=== PATIENT | male | born 1990 | race Caucasian/White ===

== ENCOUNTER 2016-10-03 08:45 | Emergency (ER) | payer SELFPAY ==
[~2016-10-03] VITALS: Ht 175.3 cm; Wt 77.8 kg
[~2016-10-03 08:45] MED LIST: TRAZODONE HCL50 MG PO; TYLENOL EXTRA500 MG PO
[2016-10-03] MEDS ORDERED: NAPROXEN500 MG PO (10:14)
[2016-10-03 11:01] VITALS: BP 134/64
== END 2016-10-03 11:02 | disposition home or self-care (01) ==
LOC: EME 08:45
DX: S20.211A Contusion of right front wall of thorax, initial encounter (principal); W18.30XA Fall on same level, unspecified, initial encounter; Y93.63 Activity, rugby
CPT/HCPCS: 71101; 99281; 99285; J1885; J3010